=== PATIENT | male | born 1950 | race Caucasian/White ===

== ENCOUNTER 2021-03-31 10:38 | Day surgery (SDC) | payer MEDICARE, OTHER ==
[~2021-03-31] VITALS: Ht 170.2 cm; Wt 79.2 kg
[2021-03-31] VITALS (11 sets, daily range): BP systolic 122–172; BP diastolic 77–88; PULSE 44–50; TEMP 98–98.4
[2021-03-31] MEDS ORDERED: FLOMAX 0.40.4 MG/CAP PO (12:12)
[2021-03-31] MEDS ORDERED: ZEBETA 5MG5 MG PO (12:13)
[2021-03-31] MEDS ORDERED: COZAAR100 MG PO (12:13)
[2021-03-31] MEDS ORDERED: LIPITOR20 MG PO (12:13)
[2021-03-31] MEDS ORDERED: ASPIRIN E.C. 8181 MG PO (12:14)
[2021-03-31] MEDS ORDERED: PROTONIX 40MG T40 MG PO (12:14)
[2021-03-31] MEDS ORDERED: FOCUS FACTOR PO (12:15)
[2021-03-31] MEDS ORDERED: ONE-A-DAY ESSE1 EACH PO (12:15)
[2021-03-31] MEDS ORDERED: TRIPLE FLEX PO (12:15)
--- NOTE | 2021-03-31 15:02 | NUR ---
PT RESTING IN BED. PT IS A/O X4, VSS, CBI RUNNING PER ORDERS. IV TO LAC. PT DENIES NEEDS, JOSHI TO DD WITH CLEAR YELLO IN PA. LUNGS CTA, BOWEL SOUNDS PRESENT. IV TO GRAVITY DRIP.
--- NOTE | 2021-03-31 21:43 | NUR ---
INTd at this time per dr order. Tolerating PO.
--- NOTE | 2021-04-01 02:52 | NUR ---
PT IN BED RESTING QUIETLY. CBI RUNNING, URINE IN JOSHI CATHETER BAG IS YELLOW. PT DENIES ANY NEEDS @ THIS TIME. CALL LIGHT WITHIN REACH.
[2021-04-01 03:13] VITALS: BP 154/76; PULSE 50; TEMP 98.4
--- NOTE | 2021-04-01 05:58 | NUR ---
Up to bathroom at this time. Amublated well with one assist. Denies pain/nausea/shortness of breath. AM meds given. CBI continues to run at a slow rate with light yellow output. Denies needs. Call light in reach. Will monitor.
[2021-04-01 08:00] VITALS: BP 146/79; PULSE 56; TEMP 97.8
--- NOTE | 2021-04-01 08:32 | NUR ---
PT RESTING IN BED DR MCCRARY IN TO SEE PT. MUTAMYCIN ORDERS RECIEVED. EATING BREAKFAST. AM MEDS GIVEN. VSS. PT DENIES PAIN. SCDS BILATERALLY. FLUIDS STOPPED.
[2021-04-01 11:00] VITALS: BP 119/66; PULSE 55
--- NOTE | 2021-04-01 11:15 | NUR ---
1030-Pt teaching done and printed information and instruction provided and reviewed. Consent signed by pt and witnessed by nurse. Questions invited and answered. Darnell catheter drained of clear light yellow urine and clamped. Using appropriate PPE and following precautions for chemotherapy administration, Mitomycin 40mg in 40 mls instilled into bladder. Again reviewed with pt and with importance of repositioning every 15 minutes to help to evenly distribute the medication over the bladder surface. Pt tolerated instillation at 1105 without issue. Chemotherapy signage posted and report to Lorne FLORES of administration.
--- NOTE | 2021-04-01 12:01 | NUR ---
HENRRY met with patient and his , Cindy , at b/s, who is also his DPOA. Patient is fully independent with ADLS, no DME's and no 02 needs. Patient and reside in [place] where his PCP is (Dr. Vic Meadows). He has no difficulties obtaining his meds through his [facility]. He also uses [facility] in [place]. *D/C home with no needs anticipated
--- NOTE | 2021-04-01 12:22 | NUR ---
Pt is tolerating the mitomycin in his bladder well and has been repositioning about every 15 minutes with help from his with watching the time.
--- NOTE | 2021-04-01 13:26 | NUR ---
Pt tolerated the full 2 hour dwell time. 650 of clear blue-yellow urine drained from villagomez and then irrigated with 300ml of CBI upon unclamping villagomez. No blood or clots noted in urine. Upon completion of flushing, villagomez catheter was dc'd, pericare provided. Cleansing wipes left at bedside. Pt aware that Lorne FLORES will be in to discuss post villagomez removal voiding.
--- NOTE | 2021-04-01 13:36 | NUR ---
Chemotherapy precautions remain in place.
--- NOTE | 2021-04-01 13:38 | NUR ---
pt successfully completed mytomycin tx. 6 bttl routine to start at this time.
--- NOTE | 2021-04-01 14:29 | NUR ---
PT VOIDED FIRST VOID AFTER MITOMYCIN TX.
[2021-04-01 15:00] VITALS: BP 128/78; PULSE 58; TEMP 97.1
--- NOTE | 2021-04-01 15:51 | NUR ---
PT HAS COMPLETED FOUR VOIDS SINCE MITOMYCIN TX.
--- NOTE | 2021-04-01 18:08 | NUR ---
REVIEWED DISCHARGE ORDERS WITH PT AND , QUESTIONS ANSWERED. PT ESCORTED OFF UNIT AMBULATORY.
== END 2021-04-01 18:10 | disposition home or self-care (01) ==
LOC: SDCO 10:38 → SURG 10:38 → SDCO 13:00 → SURG 14:56 → SDCO 04-01 18:10
DX: D09.0 Carcinoma in situ of bladder (principal); I10 Essential (primary) hypertension; E78.5 Hyperlipidemia, unspecified; K21.9 Gastro-esophageal reflux disease without esophagitis; M47.892 Other spondylosis, cervical region; R97.20 Elevated prostate specific antigen [PSA]; Z20.822 Contact with and (suspected) exposure to COVID-19; Z79.899 Other long term (current) drug therapy; Z79.82 Long term (current) use of aspirin; Z95.818 Presence of other cardiac implants and grafts; Z87.891 Personal history of nicotine dependence
CPT/HCPCS: OP; J0690; J2405; J2704; J3010; J7120; J9280; Q9967